=== PATIENT | male | born 1950 | race Caucasian/White ===

== ENCOUNTER 2021-07-04 22:15 | Emergency (ER) | payer MEDICARE, OTHER ==
[~2021-07-04 22:15] MED LIST: AMIODARONE HCL200 MG PO; ASPIRIN CHEWABL81 MG PO; ATIVAN1 MG PO; AZITHROMYCIN250 MG PO; CEFDINIR300 MG PO; DILTIAZEM 24HR360 MG PO; EFFEXOR XR150 MG PO; FLOMAX0.4 MG PO; GLIMEPIRIDE4 MG PO; ISOSORBIDE MONO60 MG PO; LASIX40 MG PO; LIPITOR20 MG PO; LOPRESSOR50 MG PO; METFORMIN HCL500 MG PO; PREDNISONE 20MG20 MG PO; PRINIVIL10 MG PO; SYMBICORT 80-10.2 GM INH; SYNTHROID150 MCG PO; TAMIFLU 75MG CA75 MG PO; TRINTELLIX PO; VENTOLIN HFA IN18 GM INH; VICODIN 10/3251 EACH PO; XARELTO20 MG PO
[2021-07-04 23:02] LABS: BASOPHIL 0.4 % (0-2); EOSINOPHIL 0.8 % (0-7); HCT 38.4 % (42.0-52.0); HGB 12.9 g/dl (13.2-18.0); LYMPHOCYTE 7.6 % (15-48); MCH 32.3 pg (25.0-31.0); MCHC 33.6 g/dL (32.0-36.0); MCV 96.2 fL (78.0-100.0); MONOCYTE 5.7 % (0-12); MPV 11.1 fL (6.0-9.5); NEUTROPHIL 84.6 % (41-80); NRBC 0; PLT 266 K/uL (150-400); RBC 3.99 M/uL (4.70-6.00); RDW 14.5 % (11.5-14.0); WBC 18.9 K/uL (4.0-10.5)
[2021-07-04 23:19] LABS: BILIRUBIN - TOTAL 0.7 mg/dL (0.2-1.0); BUN/CREAT RATIO (CALC) 16.8 RATIO; CREATININE 1.19 mg/dL (0.67-1.17)
[2021-07-05 00:39] LABS: BILIRUBIN NEGATIVE (NEGATIVE); BLOOD NEGATIVE Ery/uL (NEGATIVE); CLARITY CLEAR (CLEAR); COLOR YELLOW (YELLOW); GLUCOSE (U) TRACE mg/dL (NORMAL); LEUKOCYTES TRACE Leu/uL (NEGATIVE); NITRITE NEGATIVE (NEGATIVE); PROTEIN NEGATIVE (NEGATIVE); SPECIFIC GRAVITY 1.015 (1.001-1.030); UROBILINOGEN 0.2 mg/dL (0.2-1.0)
[2021-07-05 00:51] LABS: BACTERIA 2+; SQUAMOUS EPITHELIAL CELLS RARE; URINARY RBC RARE
[2021-07-05] MEDS ORDERED: ONDANSETRON ODT4 MG PO (03:37)
[2021-07-05] MEDS ORDERED: PERCOCET 5-3251 EACH PO (03:37)
[2021-07-05] MEDS ORDERED: CEFDINIR300 MG PO (03:41)
== END 2021-07-05 04:08 | disposition home or self-care (01) ==
LOC: FER 22:15
PROVIDERS: Internal Medicine
DX: N20.0 Calculus of kidney (principal); N28.1 Cyst of kidney, acquired; K57.30 Diverticulosis of large intestine without perforation or abscess without bleeding; I12.9 Hypertensive chronic kidney disease with stage 1 through stage 4 chronic kidney disease, or unspecified chronic kidney disease; E11.22 Type 2 diabetes mellitus with diabetic chronic kidney disease; N18.9 Chronic kidney disease, unspecified; Z88.0 Allergy status to penicillin
CPT/HCPCS: 36415; 80053; 81001; 83690; 85025; 87076; 87088; 87186; J0696; J1170; J2405; J2550

== ENCOUNTER 2021-07-07 00:25 | Inpatient (IN) | payer MEDICARE, OTHER ==
[~2021-07-07] VITALS: Ht 185.4 cm; Wt 147.1 kg
[~2021-07-07 00:25] MED LIST changes: +ONDANSETRON ODT4 MG PO; +PERCOCET 5-3251 EACH PO
[2021-07-07 01:23] LABS: BASOPHIL 0.3 % (0-2); EOSINOPHIL 0.4 % (0-7); HCT 38.6 % (42.0-52.0); HGB 12.9 g/dl (13.2-18.0); LYMPHOCYTE 5.7 % (15-48); MCH 32.3 pg (25.0-31.0); MCHC 33.4 g/dL (32.0-36.0); MCV 96.5 fL (78.0-100.0); MONOCYTE 5.6 % (0-12); MPV 11.5 fL (6.0-9.5); NEUTROPHIL 87.1 % (41-80); NRBC 0; PLT 260 K/uL (150-400); RDW 14.4 % (11.5-14.0); WBC 18.4 K/uL (4.0-10.5)
[2021-07-07 01:42] LABS: INR 1.2 (0.9-1.2); PROTHROMBIN TIME 14.6 SECONDS (11.8-13.4); PTT 32.2 SECONDS (24.4-34.7)
[2021-07-07 01:43] LABS: BILIRUBIN NEGATIVE (NEGATIVE); BLOOD TRACE-INTACT Ery/uL (NEGATIVE); CLARITY CLEAR (CLEAR); COLOR YELLOW (YELLOW); GLUCOSE (U) 3+ mg/dL (NORMAL); LEUKOCYTES NEGATIVE Leu/uL (NEGATIVE); NITRITE NEGATIVE (NEGATIVE); PROTEIN NEGATIVE (NEGATIVE); SPECIFIC GRAVITY 1.015 (1.001-1.030); UROBILINOGEN 0.2 mg/dL (0.2-1.0)
[2021-07-07 01:43] LABS: D-DIMER 0.48 ug/mLFEU (0.00-0.41)
[2021-07-07 02:01] LABS: ALBUMIN 3.8 g/dL (3.4-5.0); BILIRUBIN - TOTAL 0.7 mg/dL (0.2-1.0); BUN/CREAT RATIO (CALC) 15.2 RATIO; CREATININE 1.12 mg/dL (0.67-1.17); GLOBULIN (CALCULATION) 3.8 g/dL; POTASSIUM 4.1 mmol/L (3.5-5.1); TOTAL PROTEIN 7.6 g/dL (6.4-8.2)
[2021-07-07 02:11] LABS: URINARY RBC RARE; URINARY WBC RARE
[2021-07-07] MEDS ORDERED: AMARYL2 MG PO (06:02)
[2021-07-07] MEDS ORDERED: ELIQUIS5 MG PO (06:03)
[2021-07-08 04:28] LABS: BASOPHIL 0.4 % (0-2); EOSINOPHIL 1.1 % (0-7); HCT 36.7 % (42.0-52.0); HGB 11.9 g/dl (13.2-18.0); LYMPHOCYTE 7.3 % (15-48); MCH 31.7 pg (25.0-31.0); MCHC 32.4 g/dL (32.0-36.0); MCV 97.9 fL (78.0-100.0); MONOCYTE 8.8 % (0-12); MPV 11.4 fL (6.0-9.5); NEUTROPHIL 81.8 % (41-80); NRBC 0; PLT 228 K/uL (150-400); RBC 3.75 M/uL (4.70-6.00); RDW 14.4 % (11.5-14.0)
[2021-07-08 04:49] LABS: BUN/CREAT RATIO (CALC) 13.6 RATIO; CREATININE 1.03 mg/dL (0.67-1.17); POTASSIUM 3.7 mmol/L (3.5-5.1)
[2021-07-08 18:17] LABS: ALBUMIN 3.4 g/dL (3.4-5.0); BILIRUBIN - DIRECT 0.1 mg/dL (0.00-0.20); BILIRUBIN - TOTAL 0.6 mg/dL (0.2-1.0); GLOBULIN (CALCULATION) 3.5 g/dL; TOTAL PROTEIN 6.9 g/dL (6.4-8.2)
[2021-07-09 06:02] LABS: BASOPHIL 0.5 % (0-2); HCT 33.4 % (42.0-52.0); LYMPHOCYTE 10.2 % (15-48); MCH 32.3 pg (25.0-31.0); MCHC 32.9 g/dL (32.0-36.0); MCV 97.9 fL (78.0-100.0); MONOCYTE 8.1 % (0-12); MPV 11.3 fL (6.0-9.5); NEUTROPHIL 78.3 % (41-80); NRBC 0; PLT 200 K/uL (150-400); RBC 3.41 M/uL (4.70-6.00); RDW 14.2 % (11.5-14.0); WBC 12.8 K/uL (4.0-10.5)
[2021-07-09 06:16] LABS: ALBUMIN 2.9 g/dL (3.4-5.0); BILIRUBIN - TOTAL 0.5 mg/dL (0.2-1.0); BUN/CREAT RATIO (CALC) 12.3 RATIO; CREATININE 1.06 mg/dL (0.67-1.17); GLOBULIN (CALCULATION) 3.2 g/dL; POTASSIUM 3.3 mmol/L (3.5-5.1); TOTAL PROTEIN 6.1 g/dL (6.4-8.2)
[2021-07-10 07:17] LABS: BASOPHIL 0.5 % (0-2); EOSINOPHIL 2.2 % (0-7); HCT 35.8 % (42.0-52.0); HGB 11.9 g/dl (13.2-18.0); LYMPHOCYTE 8.9 % (15-48); MCH 32.9 pg (25.0-31.0); MCHC 33.2 g/dL (32.0-36.0); MCV 98.9 fL (78.0-100.0); MONOCYTE 7.7 % (0-12); MPV 11.2 fL (6.0-9.5); NRBC 0; PLT 225 K/uL (150-400); RBC 3.62 M/uL (4.70-6.00); RDW 14.5 % (11.5-14.0); WBC 13.7 K/uL (4.0-10.5)
[2021-07-10 07:29] LABS: ALBUMIN 3.2 g/dL (3.4-5.0); BILIRUBIN - TOTAL 0.6 mg/dL (0.2-1.0); BUN/CREAT RATIO (CALC) 8.3 RATIO; CREATININE 1.08 mg/dL (0.67-1.17); GLOBULIN (CALCULATION) 3.4 g/dL; MAGNESIUM 2.2 mg/dL (1.8-2.4); POTASSIUM 3.9 mmol/L (3.5-5.1); TOTAL PROTEIN 6.6 g/dL (6.4-8.2)
[2021-07-10] MEDS ORDERED: NITROFURANTOIN100 M1 PO (13:36)
[2021-07-10] MEDS ORDERED: LEVAQUIN500 MG PO (13:36)
[2021-07-10] MEDS ORDERED: METRONIDAZOLE500 MG PO (13:36)
== END 2021-07-10 14:55 | disposition home or self-care (01) | DRG 372 ==
LOC: FER 00:25 → FMS 05:03
PROVIDERS: Emergency Medicine Emergency Medical Services; Hospitalist; Internal Medicine; Student in an Organized Health Care Education/Training Program; ADMIT Internal Medicine
DX: A04.9 Bacterial intestinal infection, unspecified (principal); I50.22 Chronic systolic (congestive) heart failure; N39.0 Urinary tract infection, site not specified; Z16.23 Resistance to quinolones and fluoroquinolones; Z20.822 Contact with and (suspected) exposure to COVID-19; I25.5 Ischemic cardiomyopathy; I11.0 Hypertensive heart disease with heart failure; I25.10 Atherosclerotic heart disease of native coronary artery without angina pectoris; E11.65 Type 2 diabetes mellitus with hyperglycemia; E66.01 Morbid (severe) obesity due to excess calories; G47.33 Obstructive sleep apnea (adult) (pediatric); J44.9 Chronic obstructive pulmonary disease, unspecified; E78.5 Hyperlipidemia, unspecified; K21.9 Gastro-esophageal reflux disease without esophagitis; I48.0 Paroxysmal atrial fibrillation; E87.6 Hypokalemia; N40.0 Benign prostatic hyperplasia without lower urinary tract symptoms; B96.20 Unspecified Escherichia coli [E. coli] as the cause of diseases classified elsewhere; I25.2 Old myocardial infarction; Z95.810 Presence of automatic (implantable) cardiac defibrillator; Z95.5 Presence of coronary angioplasty implant and graft; Z86.73 Personal history of transient ischemic attack (TIA), and cerebral infarction without residual deficits; Z79.01 Long term (current) use of anticoagulants; Z90.49 Acquired absence of other specified parts of digestive tract; Z98.890 Other specified postprocedural states; Z79.82 Long term (current) use of aspirin; Z79.899 Other long term (current) drug therapy; Z79.84 Long term (current) use of oral hypoglycemic drugs; Z88.0 Allergy status to penicillin; Z85.828 Personal history of other malignant neoplasm of skin
CPT/HCPCS: 36415; 71045; 76705; 78227; 80048; 80053; 80076; 81001; 82150; 82962; 83036; 83605; 83690; 83735; 83880; 84145; 84484; 85025; 85379; 85610; 85730; 86677; 93005; 94010; A9537; C9113; G0378; J1170; J1650; J1956; J2270; J2405; J7030; J7040; J7120; U0002